=== PATIENT | female | born 1955 | race American Indian/Alaskan Native ===

== ENCOUNTER → 2018-04-08 | Emergency (ER) | payer MEDICAID ==
[~2018-04-08] MED LIST: GEODON IM PRN
--- NOTE | 2018-04-08 12:20 | Emergency Department Report ---
ED Psych HPI - General Stated Complaint: ACUTELY PSYCHOTIC Time Seen by Provider: 04/08/18 12:11 Source: EMS, old records reviewed (note from [facility]) - History of Present Illness Initial Comments: Patient sent from [facility] outpatient [facility], with report of being floridly psychotic, with active audio and visual hallucinations , with need for 1013 confinement and stabilization. Patient was reportedly accosting other people at the facility, demanding that they showed her genitals , and was acutely psychotic, being aggressive, although not violent, and was not overtly suicidal. Contact from facility is basically evaluation of patient at that time, but has little additional prior medical history, and patient only has 1 prior visit from 2013, with no information about past medical history as well. Patient is floridly psychotic at time of examination, and is unable to provide any additional history, although she is awake, is very poorly oriented, and is quite tangential and inappropriate. Patient will likely need medication for sedation to perform evaluation, as well as for general psychiatric stabilization. ED Review of Systems ROS: Stated complaint: ACUTELY PSYCHOTIC Other details as noted in HPI Comment: Unobtainable due to pts medical conditions ED Physical Exam - General General appearance: other (awake and alert, but floridly psychotic, and appropriate, demented, and unable to obtain any information, does not cooperate for examination.) - Head Head exam: Present: atraumatic, normocephalic - Neck Neck exam: Present: normal inspection - Respiratory Respiratory exam: Present: normal lung sounds bilaterally - Extremities Exam Extremities exam: Present: normal inspection - Neurological Exam Neurological exam: Present: alert. Absent: oriented X3 (, distalcarpalforotherportionsofexamination), motor sensory deficit (observed to move all extremities spontaneously with no obvious defect, unable to perform additional further examination) - Psychiatric Psychiatric exam: Present: agitated (patient is floridly psychotic, with tangential thought, generally inappropriate) - Skin Skin exam: Present: warm, dry Critical care attestation.: If time is entered above; I have spent that time in minutes in the direct care of this critically ill patient, excluding procedure time. ED Disposition Condition: Stable
[2018-04-08 12:53] LABS: Basophils % (Auto) 0.3 % (0.0-1.8); Eosinophils # (Auto) 0.1 K/mm3 (0.0-0.4); Eosinophils % (Auto) 1.1 % (0.0-4.3); Hematocrit 35.3 % (30.3-42.9); Hemoglobin 10.9 gm/dl (10.1-14.3); Lymphocytes # (Auto) 1.8 K/mm3 (1.2-5.4); Lymphocytes % (Auto) 21.7 % (13.4-35.0); Mean Corpuscular HGB Conc 31 % (30-34); Mean Corpuscular Hemoglobin 26 pg (28-32); Mean Corpuscular Volume 84 fl (79-97); Monocytes # (Auto) 0.8 K/mm3 (0.0-0.8); Monocytes % (Auto) 9.9 % (0.0-7.3); Platelet Count 339 K/mm3 (140-440); Red Blood Count 4.18 M/mm3 (3.65-5.03); Red Cell Distribution Width 17.3 % (13.2-15.2)
[2018-04-08 13:06] LABS: INR 0.96 (0.87-1.13)
[2018-04-08 13:18] LABS: Alanine Aminotransferase 25 units/L (7-56); Albumin 3.8 g/dL (3.9-5); BUN/Creatinine Ratio 20; Blood Urea Nitrogen 14 mg/dL (7-17); Calcium 9.5 mg/dL (8.4-10.2); Hemolysis Index 1
--- NOTE | 2018-04-08 13:56 | Cat Scan Report ---
FINAL REPORT EXAM: CT HEAD/BRAIN WO CON HISTORY: Altered Mental Status COMPARISON: None. TECHNIQUE: Multiple contiguous axial images were obtained from the skullbase to the vertex without administration of IV contrast. FINDINGS: There is mild age related cerebral cortical atrophy. There is no parenchymal hemorrhage or extra-axial fluid collection. There is no mass or mass effect. There is no acute territorial infarct. The ventricles are midline. The subarachnoid spaces and basilar cisterns are clear. There is no skull fracture. The paranasal sinuses and mastoid air cells are clear. The bilateral orbits are intact. IMPRESSION: No acute intracranial abnormality.
[2018-04-08 17:13] LABS: Bacteria,Urine 1+ /HPF (Negative); Bilirubin,Urine NEG (Negative); Blood,Urine NEG (Negative); Color,Urine Yellow (Yellow); Protein,Urine <15 mg/dL mg/dL (Negative); Urobilinogen,Urine < 2.0 mg/dL (<2.0)
[2018-04-08 17:35] LABS: Amphetamine Screen,Urine PRESUMPTIVE NEGATIVE; Benzodiazepines Screen,Urine PRESUMPTIVE NEGATIVE; Cannabinoid Screen,Urine PRESUMPTIVE NEGATIVE; Cocaine Screen,Urine PRESUMPTIVE NEGATIVE; Methadone Screen,Urine PRESUMPTIVE NEGATIVE; Opiate Screen,Urine PRESUMPTIVE NEGATIVE
--- NOTE | 2018-04-09 12:02 | Consultation ---
History of Present Illness - Reason for Consult Consult date: 04/09/18 Reason for consult: Mental Health Evaluation Requesting physician: DARIEL DONVOAN - Chief Complaint Chief complaint: "What do you want" - History of Present Psychiatric Illness 62 y.o. AA female presenting to the ER psychosis from a outpatient psy facility. Today the patient is calm, but tangential during the assessment. She has loose associations when asked questions during the interview. She had to be redirected several times to keep her on topic. Prior to entering her room, she was heard yelling and screaming. This patient is a poor historian at this time. Medications and Allergies Allergies Allergy/AdvReac Type Severity Reaction Status Date / Time No Known Allergies Allergy Verified 04/08/18 12:21 Active Meds: Active Medications Ziprasidone (Geodon) 20 mg IM Q12H PRN PRN Reason: Agitation Last Admin: 04/08/18 16:45 Dose: 20 mg Past psychiatric history - Past Medical History Past Medical History: other (Unable to obtain) Past Surgical History: Other (Unable to obtain) - past Psychiatric treatment and history psychiatric treatment history: Unable to obtain psy hx and a fam psy hx. - Social History Social history: other (Unable to obtain) Mental Status Exam - Vital signs Last Vital Signs Temp 98.2 F 04/09/18 08:02 Pulse 85 04/09/18 08:02 Resp 16 04/09/18 08:02 BP 149/106 04/09/18 08:02 Pulse Ox 97 04/09/18 08:02 - Exam Narrative exam: MSE: Appearance: calm, cooperative Behavior: poor eye contact Speech: regular rate and loud tone, pressured speech Mood: "I'm good why you ask" Affect: normal Thought Process: tangential, loose association Thought Content: no gestures of SI/HI's Motor Activity: lying in bed Cognition: A/O x 3 Insight: poor Judgment: poor Results Result Diagrams: 04/08/18 12:23 04/08/18 12:23 Abnormal lab results 04/08/18 04/08/18 04/08/18 Range/Units 12:23 12:23 12:23 MCH 26 L (28-32) pg RDW 17.3 H (13.2-15.2) % Elbert % (Auto) 9.9 H (0.0-7.3) % Sodium 136 L (137-145) mmol/L Chloride 96.8 L (98-107) mmol/L Total Creatine Kinase (30-135) units/L Albumin 3.8 L (3.9-5) g/dL Salicylates < 0.3 L (2.8-20.0) mg/dL Acetaminophen (10.0-30.0) ug/mL 04/08/18 04/08/18 Range/Units 12:23 12:23 MCH (28-32) pg RDW (13.2-15.2) % Elbert % (Auto) (0.0-7.3) % Sodium (137-145) mmol/L Chloride (98-107) mmol/L Total Creatine Kinase 398 H (30-135) units/L Albumin (3.9-5) g/dL Salicylates (2.8-20.0) mg/dL Acetaminophen < 5.0 L (10.0-30.0) ug/mL All other labs normal. Assessment and Plan Assessment and plan: Impression: Unspecified Psychosis. Today the patient is calm, but tangential during the assessment. UDS is negative. DDx: R/O Bipolar DO, R/O Schizophrenia, R/O Schizoaffective DO Recommendation/Plan: Continue 1013 with placement to inpatient psy services. Start Zyprexa 5 mg PO HS for psychosis. The patient is at risk for metabolic side effects of Zyprexa. At this time, the benefit of Zyprexa outweigh the risk.
[2018-04-09 13:07] LABS: Chol/HDL Ratio 2.59 %
[2018-04-09] MEDS: HALDOL IM PRN (21:23)
--- NOTE | 2018-04-10 13:14 | Progress Note ---
Subjective - Reason for Consult Consult date: 04/10/18 Reason for consult: Psychiatry Follow-up - Chief Complaint Chief complaint: "I am here" 62 y.o. AA female presenting to the ER psychosis from a outpatient psy facility. Today the patient is calm, but still tangential during the assessment. She had to be redirected to keep her on topic. The patient does not like keeping her gown on per the staff. She was observed eating her breakfast during the assessment. No gestures of SI/HI's. Mental Status Exam - Vital signs Last Vital Signs Temp 97.8 F 04/10/18 07:40 Pulse 103 H 04/10/18 07:40 Resp 16 04/10/18 07:40 BP 130/94 04/10/18 07:40 Pulse Ox 98 04/10/18 07:40 - Exam Narrative exam: MSE: Appearance: calm, cooperative Behavior: poor eye contact Speech: regular rate and loud tone, pressured speech Mood: "I'm good why you ask" Affect: normal Thought Process: tangential, loose association Thought Content: no gestures of SI/HI's Motor Activity: lying in bed Cognition: A/O x 3 Insight: poor Judgment: poor Assessment and Plan Impression: Unspecified Psychosis. Today the patient is calm, but tangential during the assessment. UDS is negative. DDx: R/O Bipolar DO, R/O Schizophrenia, R/O Schizoaffective DO Recommendation/Plan: Continue 1013 with placement to inpatient psy services. Continue Zyprexa 5 mg PO HS for psychosis. The patient is at risk for metabolic side effects of Zyprexa. At this time, the benefit of Zyprexa outweigh the risk.
[2018-04-11] MEDS: HALDOL IM PRN ×2 (05:43→22:05)
--- NOTE | 2018-04-11 14:07 | Progress Note ---
Subjective - Reason for Consult Consult date: 04/11/18 Reason for consult: Psychiatric Follow-up Evaluation - Chief Complaint Chief complaint: "I am here" 62 y.o. AA female presenting to the ER psychosis from a outpatient psy facility. Today the patient is calm, but still tangential during the assessment. She had to be redirected to keep her on topic. The patient does not like keeping her gown on per the staff. She was observed eating her breakfast during the assessment. No gestures of SI/HI's. Mental Status Exam - Vital signs Last Vital Signs Temp 98.2 F 04/11/18 11:06 Pulse 91 H 04/11/18 11:06 Resp 18 04/11/18 11:06 BP 134/71 04/11/18 11:06 Pulse Ox 98 04/11/18 11:06 - Exam Narrative exam: Mental Status Exam: Appearance: calm, cooperative Behavior: poor eye contact Speech: regular rate and loud tone, pressured speech Mood: "I'm good why you ask" Affect: normal Thought Process: tangential, loose association Thought Content: no gestures of SI/HI's Motor Activity: lying in bed Cognition: A/O x 3 Insight: poor Judgment: poor Assessment and Plan Impression: Unspecified Psychosis. Today the patient is calm, but tangential during the assessment. UDS is negative. DDx: R/O Bipolar DO, R/O Schizophrenia, R/O Schizoaffective DO Recommendation/Plan: 1. Continue 1013 with placement to inpatient psychiatric services. 2. Continue Zyprexa 5 mg PO HS for psychosis. The patient is at risk for metabolic side effects of Zyprexa. At this time, the benefit of Zyprexa outweigh the risk. 3. Will monitor mood, psychosis, sleep, appetite, compliance, and side effects.
[2018-04-12 04:56] VITALS: BP 152/76
--- NOTE | 2018-04-12 13:09 | Progress Note ---
Subjective - Reason for Consult Consult date: 04/12/18 Reason for consult: Psychiatry Folllow-up - Chief Complaint Chief complaint: "Hello" 62 y.o. AA female presenting to the ER psychosis from a outpatient psy facility. Today the patient is calm during the assessment. She followed commands , but still has loose associations during the interview. No gestures of SI/HI' s. Mental Status Exam - Vital signs Last Vital Signs Temp 98.1 F 04/12/18 01:00 Pulse 80 04/12/18 01:00 Resp 18 04/12/18 01:00 BP 152/76 04/12/18 01:00 Pulse Ox 98 04/12/18 01:00 - Exam Narrative exam: MSE: Appearance: calm, cooperative Behavior: regular eye contact Speech: regular rate and loud tone, pressured speech Mood: "okay" Affect: normal Thought Process: tangential, loose association Thought Content: no gestures of SI/HI's Motor Activity: lying in bed Cognition: A/O x 3 Insight: poor Judgment: poor Assessment and Plan Impression: Unspecified Psychosis. Today the patient is calm, but tangential during the assessment. UDS is negative. DDx: R/O Bipolar DO, R/O Schizophrenia, R/O Schizoaffective DO Recommendation/Plan: Continue 1013 with placement to inpatient psy services. Continue Zyprexa 5 mg PO HS for psychosis. The patient is at risk for metabolic side effects of Zyprexa. At this time, the benefit of Zyprexa outweigh the risk.
== END ==
LOC: ED 11:05 → EEVIPCON 11:05
DX: F23 Brief psychotic disorder (principal); R45.1 Restlessness and agitation; R41.82 Altered mental status, unspecified
CPT/HCPCS: 36415; 70450; 80053; 80307; 81001; 82140; 82550; 84443; 84484; 85025; 85610; 96372; 99285; G0480; J3486; 80061; 80320; 83036; J1630